=== PATIENT | female | born 1960 | race Hispanic/Latino ===

== ENCOUNTER 2022-12-10 09:08 | Observation (INO) | payer BC ==
--- NOTE | 2022-12-10 09:57 | RAD REPORT ---
EXAM DESCRIPTION: RAD - Chest Single View - 12/10/2022 9:51 am CLINICAL HISTORY: COUGH Chest pain. COMPARISON: Chest Pa And Lat (2 Views) dated 02/19/2017 FINDINGS: Portable technique limits examination quality. [id number] bilateral interstitial opacities are present. The heart is mildly enlarged in size. No displaced fractures. IMPRESSION: Mild CHF versus viral infection pattern.
[2022-12-10] MEDS ORDERED: HYDRALAZINE HCL 20 MG/ML VIAL ONE ×2 (11:23→13:33)
[2022-12-10] MEDS ORDERED: NA CHLORIDE 0.9% 1,000 ML ONE (11:23)
[2022-12-10] MEDS ORDERED: ONDANSETRON 4 MG/2 ML VIAL ONE (11:23)
[2022-12-10 11:33] LABS: Protime INR 0.97
[2022-12-10 11:34] LABS: SARS-CoV-2 Antigen Rapid Res Negative (Negative)
[2022-12-10 11:43] LABS: Absolute Lymphocytes (CBC) 0.8 K/uL (0.7-4.9); Hematocrit 44.3 % (36.0-45.0); Lymphocytes % 8.3 % (15.3-44.8); MPV 7.6 fL (7.6-11.3)
--- NOTE | 2022-12-10 11:46 | ER ---
Nurse's Notes [facility] Name: Kylee Rogers Age: 62 yrs Sex: Female : 1960 Arrival Date: 12/10/2022 Time: 09:08 Bed 5 Private MD: Diagnosis: Syncope Near;Weakness;Essential (primary) hypertension Presentation: 12/10 09:36 Chief complaint: Patient states: she started vomiting last night and is now feeling ap3 weak. Coronavirus screen: At this time, the client does not indicate any symptoms associated with coronavirus-19. Ebola Screen: No symptoms or risks identified at this time. Initial Sepsis Screen: Does the patient meet any 2 criteria? No. Patient's initial sepsis screen is negative. Does the patient have a suspected source of infection? No. Patient's initial sepsis screen is negative. Risk Assessment: Do you want to hurt yourself or someone else? Patient reports no desire to harm self or others. Onset of symptoms was December 09, 2022. 09:36 Method Of Arrival: Wheelchair ap3 09:36 Acuity: KEITH 3 ap3 Triage Assessment: 09:38 General: Appears ill, Behavior is calm, cooperative, appropriate for age. Pain: Denies ap3 pain. Neuro: Reports weakness. Respiratory: Airway is patent Respiratory effort is even, unlabored, Respiratory pattern is regular, symmetrical. GI: Reports nausea, vomiting. Historical: - Allergies: 09:37 No Known Allergies; ap3 - Home Meds: 12:29 metformin 1,000 mg oral tablet 1 tab 2 times per day [Active]; metoprolol tartrate 25 nj1 mg oral tablet 1 tab 2 times per day [Active]; lisinopril 40 mg Oral tablet 1 tab twice a day [Active]; glimepiride 4 mg Oral tablet 1 tab 2 times per day [Active]; - PMHx: 09:37 Hypertensive disorder; stroke; Diabetes mellitus; ap3 - Social history:: Smoking status: Patient denies any tobacco usage or history of. Screenin:38 Abuse screen: Denies threats or abuse. Nutritional screening: No deficits noted. ap3 Tuberculosis screening: No symptoms or risk factors identified. 11:00 [facility] ED Fall Risk Assessment (Adult) History of falling in the last 3 months, nj1 including since admission No falls in past 3 months (0 pts) Confusion or Disorientation No (0 pts) Intoxicated or Sedated No (0 pts) Impaired Gait Yes (1 pt) Mobility Assist Device Used Yes (1 pt) Altered Elimination No (0 pt) Score/Fall Risk Level 0 - 2 = Low Risk Oriented to surroundings, Maintained a safe environment, Hourly rounding (assess needs \\T\\ fall precautionary measures) done. Assessment: 11:00 Reassessment: Patient appears in no apparent distress at this time. Patient and/or nj1 family updated on plan of care and expected duration. Pain level reassessed. Patient is alert, oriented x 3, equal unlabored respirations, skin warm/dry/pink. GI: Patient currently denies nausea. 11:00 Neuro: Reports weakness in Generalized, "unable to stand". nj1 12:00 Reassessment: Patient appears in no apparent distress at this time. Patient and/or nj1 family updated on plan of care and expected duration. Pain level reassessed. Patient is alert, oriented x 3, equal unlabored respirations, skin warm/dry/pink. Vital Signs: 09:36 BP 171 / 103; Pulse 71; Resp 19; Temp 98.1; Pulse Ox 99% ; Weight 104.33 kg; Height 5 ap3 ft. 7 in. ; 11:50 BP 185 / 89; Pulse 79; Resp 22; Pulse Ox 100% on R/A; nj1 13:08 BP 204 / 104; Pulse 77; Resp 18; Pulse Ox 99% ; nj1 14:00 BP 153 / 97; Pulse 76; Resp 24; Pulse Ox 100% ; nj1 09:36 Body Mass Index 36.02 (104.33 kg, 170.18 cm) ap3 ED Course: 09:10 Patient arrived in ED. mr 09:11 Toi Ngo MD is Attending Physician. kurtis 09:36 Triage completed. ap3 09:38 Arm band placed on right wrist. ap3 09:52 XRAY Chest (1 view) In Process Unspecified. EDMS 10:31 Alexandria Alejo, KIERAN is Primary Nurse. nj1 11:00 Patient has correct armband on for positive identification. Bed in low position. Call [facility] light in reach. Side rails up X 1. Adult w/ patient. 11:00 Inserted saline lock: 20 gauge in right antecubital area, using aseptic technique. [facility] Blood collected. 11:44 EKG done, by ED staff, reviewed by Toi Ngo MD. em1 11:45 Kishor Reardon MD is Hospitalizing Provider. kurtis 12:59 CT Head Brain wo Cont In Process Unspecified. EDMS 13:03 CT Chest Wo Con In Process Unspecified. EDMS 15:03 No provider procedures requiring assistance completed. Patient admitted, IV remains in nj1 place. Administered Medications: 09:14 CANCELLED (Duplicate Order): NS 0.9% IV 1000 ml IV at 1 bolus Per protocol; 1000 mL kurtis bolus 11:21 Drug: NS 0.9% IV 1000 ml Route: IV; Rate: 1 bolus; Site: right antecubital; nj1 11:21 Drug: Ondansetron IVP 4 mg Route: IVP; Site: right antecubital; nj1 12:00 Follow up: Response: No adverse reaction nj1 11:21 Drug: hydrALAZINE IVP 10 mg Route: IVP; Site: right antecubital; nj1 12:00 Follow up: Response: No adverse reaction nj1 13:50 Drug: Rocephin IV 1 grams Route: IV; Rate: per protocol; Site: right antecubital; bp 13:50 Drug: Magnesium Sulfate IVPB 1 grams Route: IVPB; Infused Over: 1 hrs; Site: right bp antecubital; 13:50 Drug: hydrALAZINE IVP 10 mg Route: IVP; Site: right antecubital; bp 14:36 Follow up: Response: No adverse reaction nj1 13:50 Drug: hydrALAZINE PO 10 mg Route: PO; bp 14:36 Follow up: Response: No adverse reaction nj1 Medication: 15:04 VIS not applicable for this client. nj1 Outcome: 11:45 Decision to Hospitalize by Provider. kurtis 14:43 Admitted to Med/surg via stretcher, room 229, Other Taken to floor by MRI staff. Ok'd nj1 by charge nurse. Report called to Nurse Ricks. 14:43 Admitted to [facility] 14:43 Condition: stable 14:43 Instructed on the need for admit. 15:06 Patient left the ED. [facility] Signatures: Dispatcher [employer] EDLA Toi Ngo MD MD cha Rivera, Gary Christianson em1 Earnest Arambula, RN RN bp Rose Marie Vasquez RN RN ap3 Alexandria Alejo RN RN nj1 Corrections: (The following items were deleted from the chart) 12:21 11:00 Reassessment: Patient appears in no apparent distress at this time. Patient nj1 and/or family updated on plan of care and expected duration. Pain level reassessed. Patient is alert, oriented x 3, equal unlabored respirations, skin warm/dry/pink. nj1 12: 09:37 Home Meds: Metformin Oral; ap3 nj1 12: 09:37 Home Meds: Metoprolol Tartrate Oral; ap3 nj1
--- NOTE | 2022-12-10 11:46 | EDPHYS ---
Physician Documentation [facility] Name: Kylee Rogers Age: 62 yrs Sex: Female : 1960 Arrival Date: 12/10/2022 Time: 09:08 Bed 5 Private MD: ED Physician Toi Ngo HPI: 12/10 11:14 This 62 yrs old Female presents to ER via Wheelchair with complaints of kurtis Vomiting, Weakness. 11:14 The patient presents to the emergency department with nausea, vomiting. Onset: The kurtis symptoms/episode began/occurred 2 day(s) ago. Possible causes: unknown. The symptoms are aggravated by nothing. The symptoms are alleviated by nothing. Associated signs and symptoms: Pertinent positives: abdominal pain. Severity of symptoms: At their worst the symptoms were mild in the emergency department the symptoms are unchanged. The patient has experienced similar episodes in the past, a few times. Historical: - Allergies: 09:37 No Known Allergies; ap3 - Home Meds: 12:29 metformin 1,000 mg oral tablet 1 tab 2 times per day [Active]; metoprolol tartrate 25 nj1 mg oral tablet 1 tab 2 times per day [Active]; lisinopril 40 mg Oral tablet 1 tab twice a day [Active]; glimepiride 4 mg Oral tablet 1 tab 2 times per day [Active]; - PMHx: 09:37 Hypertensive disorder; stroke; Diabetes mellitus; ap3 - Social history:: Smoking status: Patient denies any tobacco usage or history of. ROS: 11:16 Constitutional: Negative for fever, chills, and weight loss, Eyes: Negative for injury, kurtis pain, redness, and discharge, ENT: Negative for injury, pain, and discharge, Neck: Negative for injury, pain, and swelling, Cardiovascular: Negative for chest pain, palpitations, and edema, Respiratory: Negative for shortness of breath, cough, wheezing, and pleuritic chest pain, Abdomen/GI: Negative for abdominal pain, nausea, vomiting, diarrhea, and constipation, Back: Negative for injury and pain, : Negative for injury, bleeding, discharge, and swelling, MS/Extremity: Negative for injury and deformity, Skin: Negative for injury, rash, and discoloration, Psych: Negative for depression, anxiety, suicide ideation, homicidal ideation, and hallucinations, Allergy/Immunology: Negative for hives, rash, and allergies, Endocrine: Negative for neck swelling, polydipsia, polyuria, polyphagia, and marked weight changes, Hematologic/Lymphatic: Negative for swollen nodes, abnormal bleeding, and unusual bruising. 11:16 Neuro: Positive for dizziness, weakness. Exam: 11:16 Constitutional: This is a well developed, well nourished patient who is awake, alert, kurtis and in no acute distress. Head/Face: Normocephalic, atraumatic. Eyes: Pupils equal round and reactive to light, extra-ocular motions intact. Lids and lashes normal. Conjunctiva and sclera are non-icteric and not injected. Cornea within normal limits. Periorbital areas with no swelling, redness, or edema. ENT: Nares patent. No nasal discharge, no septal abnormalities noted. Tympanic membranes are normal and external auditory canals are clear. Oropharynx with no redness, swelling, or masses, exudates, or evidence of obstruction, uvula midline. Mucous membranes moist. Neck: Trachea midline, no thyromegaly or masses palpated, and no cervical lymphadenopathy. Supple, full range of motion without nuchal rigidity, or vertebral point tenderness. No Meningismus. Chest/axilla: Normal chest wall appearance and motion. Nontender with no deformity. No lesions are appreciated. Cardiovascular: Regular rate and rhythm with a normal S1 and S2. No gallops, murmurs, or rubs. Normal PMI, no JVD. No pulse deficits. Respiratory: Lungs have equal breath sounds bilaterally, clear to auscultation and percussion. No rales, rhonchi or wheezes noted. No increased work of breathing, no retractions or nasal flaring. Abdomen/GI: Soft, non-tender, with normal bowel sounds. No distension or tympany. No guarding or rebound. No evidence of tenderness throughout. Back: No spinal tenderness. No costovertebral tenderness. Full range of motion. Skin: Warm, dry with normal turgor. Normal color with no rashes, no lesions, and no evidence of cellulitis. MS/ Extremity: Pulses equal, no cyanosis. Neurovascular intact. Full, normal range of motion. Neuro: Awake and alert, GCS 15, oriented to person, place, time, and situation. Cranial nerves II-XII grossly intact. Motor strength 5/5 in all extremities. Sensory grossly intact. Cerebellar exam normal. Normal gait. Psych: Awake, alert, with orientation to person, place and time. Behavior, mood, and affect are within normal limits. 11:44 ECG was reviewed by the Attending Physician. [facility] Vital Signs: 09:36 BP 171 / 103; Pulse 71; Resp 19; Temp 98.1; Pulse Ox 99% ; Weight 104.33 kg; Height 5 ap3 ft. 7 in. ; 11:50 BP 185 / 89; Pulse 79; Resp 22; Pulse Ox 100% on R/A; oh1 13:08 BP 204 / 104; Pulse 77; Resp 18; Pulse Ox 99% ; banner 14:00 BP 153 / 97; Pulse 76; Resp 24; Pulse Ox 100% ; banner 09:36 Body Mass Index 36.02 (104.33 kg, 170.18 cm) ap3 MDM: 09:12 Patient medically screened. [facility] 11:18 Differential diagnosis: Nonspecific abd pain, gastritis, viral gastroenteritis, kurtis gastroenteritis. Differential Diagnosis altered mental status, sepsis, flu. Data reviewed: vital signs, nurses notes, lab test result(s), EKG, radiologic studies, CT scan, plain films. Consideration of Admission/Observation Escalation of care including admission/observation considered. Management of patient was discussed with the following: Hospitalist: md darline. 12/10 09:13 Order name: Basic Metabolic Panel; Complete Time: 12:31 [facility] 12/10 09:13 Order name: CBC with Diff; Complete Time: 12:31 [facility] 12/10 09:13 Order name: LFT's; Complete Time: 12:31 [facility] 12/10 09:13 Order name: Magnesium; Complete Time: 12:31 [facility] 12/10 09:13 Order name: NT PRO-BNP; Complete Time: 12:31 [facility] 12/10 09:13 Order name: PT-INR; Complete Time: 11:39 [facility] 12/10 09:13 Order name: Troponin HS; Complete Time: 12:31 [facility] 12/10 09:13 Order name: Lipase; Complete Time: 12:31 [facility] 12/10 09:13 Order name: Blood Culture Adult (2) [facility] 12/10 09:13 Order name: Lactate w/ 2H reflex if indic.; Complete Time: 12:31 [facility] 12/10 09:13 Order name: Urinalysis w/ reflexes; Complete Time: 12:31 [facility] 12/10 09:13 Order name: SARS RAPID; Complete Time: 11:39 [facility] 12/10 09:13 Order name: Flu; Complete Time: 12:31 [facility] 12/10 09:46 Order name: Glucose, Ancillary Testing; Complete Time: 11:39 [facility] 12/10 14:00 Order name: Hemoglobin A1c [facility] 12/10 14:00 Order name: Lipid Profile [facility] 12/10 09:13 Order name: XRAY Chest (1 view); Complete Time: 11:39 [facility] 12/10 12:41 Order name: CT Head Brain wo Cont [facility] 12/10 12:41 Order name: CT Chest Wo Con [facility] 12/10 13:54 Order name: Brain Wo Cont [facility] 12/10 09:13 Order name: EKG; Complete Time: 09:15 [facility] 12/10 09:13 Order name: Cardiac monitoring; Complete Time: 11:10 [facility] 12/10 09:13 Order name: EKG - Nurse/Tech; Complete Time: 11:44 [facility] 12/10 09:13 Order name: IV Saline Lock; Complete Time: 11:10 [facility] 12/10 09:13 Order name: Labs collected and sent; Complete Time: 11:10 [facility] 12/10 09:13 Order name: O2 Per Protocol; Complete Time: 11:10 [facility] 12/10 09:13 Order name: O2 Sat Monitoring; Complete Time: 11:10 [facility] EC:44 Rate is 75 beats/min. Rhythm is regular. QRS Draper is Normal. DC interval is normal. QRS kurtis interval is normal. QT interval is normal. No Q waves. T waves are Normal. No ST changes noted. Clinical impression: NSR w/ Non-specific ST/T Changes and No evidence of ischemia. Interpreted by me. Reviewed by me. Administered Medications: 09:14 CANCELLED (Duplicate Order): NS 0.9% IV 1000 ml IV at 1 bolus Per protocol; 1000 mL [facility] bolus 11:21 Drug: NS 0.9% IV 1000 ml Route: IV; Rate: 1 bolus; Site: right antecubital; nj1 11:21 Drug: Ondansetron IVP 4 mg Route: IVP; Site: right antecubital; nj1 12:00 Follow up: Response: No adverse reaction nj1 11:21 Drug: hydrALAZINE IVP 10 mg Route: IVP; Site: right antecubital; nj1 12:00 Follow up: Response: No adverse reaction nj1 13:50 Drug: Rocephin IV 1 grams Route: IV; Rate: per protocol; Site: right antecubital; bp 13:50 Drug: Magnesium Sulfate IVPB 1 grams Route: IVPB; Infused Over: 1 hrs; Site: right bp antecubital; 13:50 Drug: hydrALAZINE IVP 10 mg Route: IVP; Site: right antecubital; bp 14:36 Follow up: Response: No adverse reaction nj1 13:50 Drug: hydrALAZINE PO 10 mg Route: PO; bp 14:36 Follow up: Response: No adverse reaction nj1 Disposition Summary: 12/10/22 11:45 Hospitalization Ordered Hospitalization Status: Inpatient Admission kurtis Provider: Kishor Reardon cha Location: Telemetry/MedSurg (observation) kurtis Condition: Fair kurtis Problem: new kurtis Symptoms: have improved kurtis Bed/Room Type: Standard kurtis Room Assignment: 229(12/10/22 14:02) dw Diagnosis - Syncope Near kurtis - Weakness kurtis - Essential (primary) hypertension kurtis Forms: - Medication Reconciliation Form kurtis - SBAR form kurtis Signatures: Dispatcher [employer] Kaela Chicas RN RN dw Toi Ngo MD MD cha Peltier, Brian RN RN bp Rose Marie Vasquez RN RN [facility] Alexandria Alejo RN RN nj1 Corrections: (The following items were deleted from the chart) 09:14 09:13 NS 0.9% IV 1000 ml IV at 1 bolus Per protocol; 1000 mL bolus ordered. [facility] 12:31 09:37 Home Meds: Metformin Oral; [place] [id number] 12:31 09:37 Home Meds: Metoprolol Tartrate Oral; 3 banner 14:02 11:45 kurtis dw
[2022-12-10 11:49] LABS: Albumin 3.9 g/dL (3.4-5.0); Bilirubin Direct 0.1 mg/dL (0-0.2); Bilirubin Total 0.6 mg/dL (0.2-1.0); Magnesium 1.6 mg/dL (1.6-2.4); Potassium 3.9 mEq/L (3.5-5.1); Protein, Total 8.4 g/dL (6.4-8.2); Troponin High Sensitivity 9.5 pg/mL (<58.9)
[2022-12-10 12:26] LABS: Specific Gravity 1.017 (1.005-1.030); Urine Bacteria None Seen /HPF (<20); Urine Bilirubin NEGATIVE (Negative); Urine Blood Negative (Negative); Urine Clarity Clear (Clear); Urine Color Light-Yellow (Yellow); Urine Glucose 4+ (Over) (Negative); Urine Mucus Slight /HPF (None Seen); Urine Protein 1+ (Negative); Urine Urobilinogen Normal (Normal); Urine pH 6.5 (5.0-7.0)
[2022-12-10] MEDS ORDERED: HYDRALAZINE HCL 10 MG TABLET ONE (13:33)
[2022-12-10] MEDS ORDERED: CEFTRIAXONE 1000 MG/VIAL ONE (13:33)
[2022-12-10] MEDS ORDERED: MAGNESIUM SULFATE 1 gm IVPB 1 GM/100 ML BAG IV ONE (13:34)
[2022-12-10] MEDS ORDERED: NA CHLORIDE 0.9% 100 ML ONE (13:34)
--- NOTE | 2022-12-10 13:45 | RAD REPORT ---
EXAM DESCRIPTION: CT - Head Brain Wo Cont - 12/10/2022 1:01 pm CLINICAL HISTORY: DIZZINESS COMPARISON: Brain Wo Cont dated 02/21/2017 TECHNIQUE: Noncontrast head CT images ad were obtained without IV contrast. Multiplanar reformats we re generated and reviewed. All CT scans are performed using dose optimization technique as appropriate and may include automated exposure control or mA/KV adjustment according to patient size. FINDINGS: No intracranial hemorrhage, mass, or edema. Midline structures are unremarkable. Normal ventricular caliber for age. Encephalomalacia in the left parasagittal parieto-occipital region, stable. Farris-white matter differe ntiation elsewhere is preserved, without evidence of acute infarct. No abnormal extra-axial fluid col lections. Mastoid air cells and visualized portions of the paranasal sinuses are clear. No acute bony findings. IMPRESSION: No evidence of an acute intracranial process. Stable left parieto-occipital encephalomal acia.
[2022-12-10] MEDS ORDERED: TRAMADOL HCL 50 MG TAB PO PRN (13:55)
[2022-12-10] MEDS ORDERED: ONDANSETRON 4 MG/2 ML VIAL IV PRN (14:00)
--- NOTE | 2022-12-10 14:00 | RAD REPORT ---
EXAM DESCRIPTION: CT - Thorax Wo Con - 12/10/2022 1:01 pm CLINICAL HISTORY: DYSPNEA COMPARISON: Head Brain Wo Cont dated 12/10/2022 TECHNIQUE: Axial thin cut images of the chest were obtained without IV contrast. Multiplanar reforma ts were generated and reviewed. All CT scans are performed using dose optimization technique as appropriate and may include automated exposure control or mA/KV adjustment according to patient size. FINDINGS: No focal mass or infiltrate in the lung parenchyma. Centrally predominant interlobular sep trav thickening, with pattern of perilymphatic micro nodules both in the bilateral central regions, an d right more than left peripheral upper lobes and right peripheral lower lobe. No pleural thickening or pleural effusion. No pneumothorax. Mildly prominent mediastinal and hilar lymphadenopathy seen. No significant aortic or pulmonary arter y findings. Assessment is limited in the absence of IV contrast. No chest wall mass or abnormal axillary lymphadenopathy. Evaluation of the solid abdominal structures reveals no suspicious findings. 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 IMPRESSION: No focal consolidation. Pattern of interlobular septal thickening and perilymphatic micro nodularity as above. Differential c onsiderations include pulmonary sarcoidosis, exposure pneumoconiosis, or lymphangitis carcinomatosis. Please correlate clinically.
[2022-12-10] MEDS ORDERED: LORazepam 2 MG/ML VIAL IV ONE (14:04)
--- NOTE | 2022-12-10 14:16 | P.HP ---
Certification for Inpatient Patient admitted to: Inpatient With expected LOS: >2 Midnights Patient will require the following post-hospital care: None Practitioner: I am a practitioner with admitting privileges, knowledge of patient current condition, hospital course, and medical plan of care. Services: Services provided to patient in accordance with Admission requirements found in Title 42 Section 412.3 of the Code of Federal Regulations Patient History Date of Service: 12/10/22 Reason for admission: Dizziness and generalized weakness History of Present Illness: Patient is a 62-year-old female with a past medical history significant for DM 2, hypertension, CVA who presents with complaint of dizziness and generalized weakness. Patient reported that yesterday she had an episodes of dizziness before she went to bed. Patient reported that when she woke up she started experiencing generalized weakness, nausea, vomiting and fatigue. Patient also developed poor gait and had to be supported by family before patient could ambulate. Patient reported associated signs and symptoms of headache, diaphoresis and generalized malaise. Patient denies any other signs and symptoms. Symptoms are aggravated or relieved by nothing. Patient decided to present to the hospital for medical evaluation. Allergies No Known Allergies Allergy (Unverified 12/10/22 15:40) Home Medications: Glimepiride 4 mg PO BID 12/10/22 Lisinopril [Zestril] 40 mg PO BID 12/10/22 Metformin HCl 1,000 mg PO BID 12/10/22 Metoprolol Tartrate 25 mg PO BID 12/10/22 - Past Medical/Surgical History -: CVA -: Obesity -: DM 2 -: HTN Past Surgical History: Reviewed- Non-Contributory - Family History Father -: Diabetes, Cancer Mother -: Other (see notes) (Glaucoma, CVA) - Social History Smoking Status: Never smoker Alcohol use: No CD- Drugs: No Caffeine use: No Place of Residence: Home Review of Systems General: Sweats, Weakness, Malaise, Other (Fatigue) Eyes: Unremarkable ENT: Unremarkable Cardiovascular: Unremarkable Gastrointestinal: Nausea, Vomiting Genitourinary: Unremarkable Musculoskeletal: Unremarkable Integumentary: Unremarkable Neurological: Other (Dizziness, poor gait, headache) Physical Examination - Physical Exam General: Alert, In no apparent distress, Oriented x3, Cooperative HEENT: Atraumatic, PERRLA, Mucous membr. moist/pink, EOMI, Sclerae nonicteric Neck: Supple, 2+ carotid pulse no bruit, No LAD, Without JVD or thyroid abnormality Respiratory: Clear to auscultation bilaterally, Normal air movement Cardiovascular: No edema, Regular rate/rhythm, Normal S1 S2 Capillary refill: <2 Seconds Gastrointestinal: Normal bowel sounds, Soft and benign, No tenderness Musculoskeletal: No clubbing, No swelling, No tenderness Integumentary: No rashes Neurological: Normal speech, Normal tone, Normal affect, Abnormal gait Lymphatics: No axilla or inguinal lymphadenopathy - Studies Laboratory Data (last 24 hrs) 12/10/22 11:00: PT 10.7, INR 0.97 12/10/22 11:00: WBC 9.70, Hgb 14.4, Hct 44.3, Plt Count 254 12/10/22 11:00: Sodium 132 L, Potassium 3.9, BUN 17, Creatinine 0.58, Glucose 290 H, Magnesium 1.6, Total Bilirubin 0.6, AST 14 L, ALT 32, Alkaline Phosphatase 117, Lipase 27 Microbiology Data (last 24 hrs): 12/10/22 10:52 Nasopharnyx Influenza Type A Antigen Screen - Final 12/10/22 10:52 Nasopharnyx Influenza Type B Antigen Screen - Final Assessment and Plan - Plan --CVA. MRI brain indicates Left inferior norm cerebellum foci of diffusion restriction suggestive of acute to subacute infarct. Sequelae of remote ischemia involving the left occipital lobe and left basal temporal region. Patient outside TNK window. Neurology was consulted. Attending MD spoke with neurology who recommended aspirin, folic acid, Plavix and statin. PT/OT eval and treat. Fall precautions. Echocardiogram pending to assess for Cardioembolic source of stroke. Carotid Doppler to rule out any carotid artery stenosis. Continue supportive care. Further management per neurologist. --Generalized weakness. Secondary to CVA. PT eval and treat. Continue supportive care. --Hypertension. We will allow for permissive hypertension. Hydralazine as needed for SBP greater than 220 mg Hg. continue supportive care. --History of CVA. Continue aspirin, Plavix and statin. --DM2. BS monitoring with sliding scale insulin. -- Elevated BNP. Chest x-ray indicates Mild CHF versus viral infection pattern. Echocardiogram pending to assess cardiac structures and functions. Patient placed on diuresis with Lasix. Daily weight and strict I/O. -- Class II obesity. Likely secondary to excess calories intake. Patient counseled on weight reduction, diet and excise therapy. --DVT prophylaxis with Lovenox subQ. Discharge Plan: Home Plan to discharge in: Greater than 2 days - Advance Directives Does patient have a Living Will: No Does patient have a Durable POA for Healthcare: No - Code Status/Comfort Care Code Status Assessed: Yes Physician Review: Patient Assessed, Agree with Above Assessment and Plan Critical Care: No
[2022-12-10 15:40] VITALS: BMI 36.1
[2022-12-10] MEDS: ENOXAPARIN 40 MG/0.4 ML SQ SCH (15:58)
--- NOTE | 2022-12-10 16:21 | RAD REPORT ---
EXAM DESCRIPTION: MRI - Brain Wo Cont - 12/10/2022 3:20 pm CLINICAL HISTORY: Dizziness,Generalized weakness, Poor gait, R O CVA COMPARISON: MRI brain 02/21/2017. 12/10/[address] TECHNIQUE: Multiplanar multisequence MRI of the brain performed without IV contrast. FINDINGS: Foci of diffusion restriction are seen in the left inferior norm cerebellum, with some of the lesions involving the left cerebellar tonsil. There is corresponding T2/FLAIR signal hyperintensi ty. Left occipital encephalomalacia and adjacent gliosis are stable. Foci of gliosis and encephalomalacia along the basal left temporal lobe (showing some corresponding serpiginous marginal susceptibility s ignal abnormality suggestive of hemosiderin staining), and left peritrigonal white matter are now see n. Findings are most suggestive of remote ischemia. No evidence of acute intracranial hemorrhage or abnormal extra-axial fluid collections. Mild diffuse parenchymal volume loss. Ventricular caliber otherwise within normal for age. Midline st ructures are unremarkable. Scattered subcortical and deep white matter T2/FLAIR hyperintensities, nonspecific, but suggestive of chronic small vessel ischemic changes. No mass effect or midline shift. Major vascular flow voids are preserved. Mastoid air cells and paranasal sinuses are clear. IMPRESSION: Left inferior norm cerebellum foci of diffusion restriction suggestive of acute to subac fito infarct. Sequelae of remote ischemia involving the left occipital lobe and left basal temporal region.
[2022-12-10] MEDS ORDERED: FUROSEMIDE 20 MG/ 2ML VIAL IV SCH (17:00)
[2022-12-10] MEDS ORDERED: HYDRALAZINE HCL 20 MG/ML VIAL IV PRN (17:22)
[2022-12-10] MEDS: FOLIC ACID 1 MG TABLET PO SCH (17:26)
[2022-12-10] MEDS: CLOPIDOGREL 75 MG TABLET PO SCH (17:26)
[2022-12-10] MEDS: INSULIN -REGULAR HUMAN 50 UNIT/0.5 ML ML SQ SCH ×2 (17:27→22:27)
[2022-12-10 20:50] LABS: Magnesium 1.6 mg/dL (1.6-2.4); Thyroid Stimulating Hormone 0.704 uIU/mL (0.358-3.740)
[2022-12-10] MEDS: ATORVASTATIN 40 MG TAB PO SCH (21:03)
[2022-12-11 04:28] LABS: Absolute Lymphocytes (CBC) 1.2 K/uL (0.7-4.9); Hematocrit 38.8 % (36.0-45.0); Lymphocytes % 15.7 % (15.3-44.8); MCV 86.2 fL (80-100); MPV 7.4 fL (7.6-11.3); RBC Red Blood Cell Count 4.51 M/uL (3.86-4.86)
[2022-12-11] MEDS: ACETAMINOPHEN 325 MG TABLET PO PRN (04:42)
[2022-12-11 05:06] LABS: Potassium 3.4 mEq/L (3.5-5.1)
--- NOTE | 2022-12-11 07:53 | EKG ---
Test Date: 2022-12-10 Test Time: 11:41:17 [employer] Consultant: DOM MEASUREMENT RESULTS: Intervals: Rate: 75 OR: 166 QRSD: 98 QT: 444 QTc: 495 [place]: P: 78 OR: 166 QRS: 57 T: 108 INTERPRETIVE STATEMENTS: Sinus rhythm with premature ventricular complexes or fusion complexes Septal infarct, age undetermined Abnormal ECG Compared to ECG 02/19/2017 10:26:00 Fusion complex(es) now present Ventricular premature complex(es) now present Myocardial infarct finding now present Electronically Signed On 12-11-22 07:52:24 CDT by Franco Posada
[2022-12-11] MEDS: ENOXAPARIN 40 MG/0.4 ML SQ SCH (08:14)
[2022-12-11] MEDS: ASPIRIN 81 MG CHEWABLE TABLET PO SCH (08:14)
[2022-12-11] MEDS: CLOPIDOGREL 75 MG TABLET PO SCH (08:15)
[2022-12-11] MEDS: INSULIN -REGULAR HUMAN 50 UNIT/0.5 ML ML SQ SCH ×4 (08:15→20:34)
[2022-12-11] MEDS: FOLIC ACID 1 MG TABLET PO SCH (08:15)
--- NOTE | 2022-12-11 08:24 | RAD REPORT ---
EXAM DESCRIPTION: US - CP - 12/11/2022 1:09 am CLINICAL HISTORY: Dizziness Headache, drowsiness, dizziness COMPARISON: Carotid Artery Bilateral dated 02/21/2017 TECHNIQUE: Real-time sonographic evaluation of both carotid systems was performed. Doppler interroga tion was performed with waveform tracing bilaterally. FINDINGS: Normal high resistance waveforms are noted in both external carotid arteries. The common c arotid arteries and internal carotid arteries show normal low resistance waveforms. No significant plaque formation is seen. Peak systolic and end diastolic velocity values and the ICA/ CCA ratios are in the non-hemodynamically significant range. Antegrade flow seen in both vertebral arteries. IMPRESSION: No significant atherosclerotic changes noted. No evidence of a hemodynamically significant stenosis.
[2022-12-11] MEDS ORDERED: POTASSIUM CL SA 10 MEQ TAB PO ONE (09:00)
[2022-12-11 18:56] LABS: Potassium 4.2 mEq/L (3.5-5.1)
--- NOTE | 2022-12-11 18:59 | P.PN ---
Subjective Date of Service: 12/11/22 Chief Complaint: Dizziness and generalized weakness No acute events overnight. She continues to experience dizziness with ambulation. She states this is mildly improved compared to yesterday. She denies any chest pain, palpitations, or shortness of breath Review of Systems 10-point ROS is otherwise unremarkable Neurological: Other (dizziness) Physical Examination - Vital Signs Temperature: 98.2 F Blood Pressure: 146/70 Pulse: 67 Respirations: 14 Pulse Ox (%): 98 - Physical Exam General: Alert, In no apparent distress, Oriented x3 HEENT: Atraumatic, Mucous membr. moist/pink, EOMI, Sclerae nonicteric Neck: JVD not distended Respiratory: Clear to auscultation bilaterally, Normal air movement Cardiovascular: No edema, Regular rate/rhythm, Normal S1 S2, No gallops, No rubs, No murmurs Gastrointestinal: Normal bowel sounds, Soft and benign, Non-distended, No tenderness, No rebound, No guarding Musculoskeletal: No clubbing Integumentary: No rashes Neurological: Normal speech, Normal strength at 5/5 x4 extr, Normal tone, Sensation intact, Cranial nerves 3-12 intact, Normal reflexes 2+, Normal affect Assessment And Plan - Plan NIH Stroke Scale 1a. Level of consciousness: 0 - Alert; keenly responsive 1b. LOC questions: 0 - Both questions right 1c. LOC commands: 0 - Performs both tasks 2. Best Gaze: 0 - Normal 3. Visual: 0 - No visual loss 4. Facial Palsy: 0 - Normal symmetry 5a. Motor left arm: 0 - No drift for 10 seconds 5b. Motor right arm: 0 - No drift for 10 seconds 6a. Motor left le - No drift for 5 seconds 6b. Motor right le - No drift for 5 seconds 7. Limb ataxia: 0 - No ataxia 8. Sensory: 0 - Normal; no sensory loss 9. Best Language: 0 - Normal; no aphasia 10. Dysarthria: 0 - Normal 11. Extinction and Inattention: 0 - No abnormality 12. Distal motor function: 0 - No abnormality Total Score: 0 # Acute/Subacute Left Cerebellar Cerebrovascular Accident # History of Cerebrovascular Accident # Hypertensive Urgency # Dyslipidemia - Consulted Neurology and spoke with Dr. Dorman - recommendations appreciated - NIHSS = 0 - Allow permissive hypertension up to SBP 180 mmHg for today - q4hr neurochecks - Radiology: - Carotid artery ultrasound = "no significant atherosclerotic changes noted. No evidence of a hemodynamically significant stenosis" - CT head = "no evidence of an acute intracranial process. Stable left parieto-occipital encephalomalacia." - MRI brain = "left inferior norm cerebellum foci of diffusion restriction suggestive of acute to subacute infarct. Sequelae of remote ischemia involving the left occipital lobe and left basal temporal region." - MRA head/neck requested - Ordered transthoracic echocardiogram - PT/OT evaluation requested - Ordered risk profile: - Hgb A1c = 10.0 % - Lipid Panel = TC 193, LDL 120, HDL 47, TG 129 - TSH = 0.704 - Started aspirin, atorvastatin, folic acid, clopidogrel per Neuro recs # Hyperglycemia in Type II Diabetes Mellitus - Hgb A1c = 10.0 % - Correction scale insulin ordered # Interlobular Septal Thickening with Mildly Prominent Mediastinal/Hilar Lymphadenopathy seen on CT Scan - CT chest = "no focal consolidation. Pattern of interlobular septal thickening and perilymphatic micro nodularity as above. Differential considerations include pulmonary sarcoidosis, exposure pneumoconiosis, or lymphangitis carcinomatosis. Please correlate clinically." - Pulmonology consulted - recommendations appreciated Kishor Reardon M.D.
[2022-12-11] MEDS: ATORVASTATIN 40 MG TAB PO SCH (20:27)
--- NOTE | 2022-12-12 00:43 | CON ---
Reason For Consultation: Consultation called because of intermittent dizziness and generalized weakn ess. History Of Present Illness: Ms. Rogers is a 62-year-old patient who has diabetes, hypertension and prior stroke, that she recovered from well except for some difficulty with her gait, coordination, a nd loss of balance. She said the episode occurred after going to bed and when she woke up, she felt as though she was sick to stomach, falling forward, and she was assisted by her daughter. Her daught er said she felt that she was putting her full weight on her and she had to try to hold her up to cindy p her from falling. She did have headache, diaphoresis and felt generalized malaise when the event o ccurred. She came to the hospital for evaluation where her blood work showed essentially unremarkabl e complete blood count with differential. Coagulation panel was normal. Chemistries showed hyponatr emia and hypokalemia at 133 and 3.4,. Blood glucose was slightly elevated to 208. Creatinine was nor mal at 0.6. Beta natriuretic peptide elevated to 1129. Cholesterol panel was normal. Liver functio n studies unremarkable. Thyroid function studies unremarkable. Urinalysis, however, did show 75 est erase, 5 to 10 red blood cells, and 1+ ketones. COVID testing was negative. Her brain MRI done yest erday revealed left inferior norm cerebellar focal diffusion suggestive of subacute to acute infarct. There was also the sequelae of remote infarct in the left occipital lobe and left basal temporal re gion. Her carotid artery ultrasound showed no significant arthrosclerotic disease or no hemodynamica lly significant stenosis. Chest CT scan showed no focal consolidation. There is a pattern of interl obar septal thickening and perilymphatic micronodularity as noted. That differential diagnosis does include pulmonary sarcoidosis, exposure to pneumoconiosis, or lymphangitis carcinomatosis. Past Medical History: Stroke, obesity, diabetes mellitus type 2, and hypertension. Medications: Glimepiride 4 mg twice daily, lisinopril 40 mg twice daily, metformin 1000 mg twice leena ly, and metoprolol 25 mg daily. Allergies: NO KNOWN DRUG ALLERGIES. Family History: Diabetes and cancer in father. Mother with glaucoma. Social History: No alcohol, tobacco, or IV drug use. The patient lives at home with family. Review of Systems: As noted, diffuse weakness, myalgias, arthralgias, unsteady gait, inability to maintain balance and f alling along with nausea and vomiting. Otherwise, no genitourinary or gastrointestinal issues. No s ignificant cardiovascular issues. Physical Examination: Vital Signs: Blood pressure 146/70, pulse 67, respiratory rate 14, temperature 98.2, and oxygen satu ration 98% on room air. Weight 230 pounds. Height 5 feet 7 inches. HEENT: She is normocephalic, atraumatic. Sclerae anicteric. Oropharynx pink and moist. Neck: Supple. Chest: Clear. Heart: Regular. Extremities: No significant clubbing, cyanosis, or edema. Neurologic: She is alert and oriented to person, place, time, and situation. In terms of cranial ne rves, no focal neurological deficits noted, perhaps except some difficulty with saccades to the left. In terms of motor exam, no weakness in upper and lower extremities; however, she has incoordination noted in the left upper and lower extremities with dysmetria, past pointing, and difficulty with ema l-to-ellison on the left. In terms of her gait, tendency to fall to the left as she tries to stand and ambulate. Reflexes are symmetric. Mild stocking-glove loss to light touch and temperature. Assessment: Ms. Rogers is a 62-year-old patient with hypertension, diabetes, prior stroke, and an acute to subacute left inferior norm cerebellar stroke in addition to an old left occipital stroke. There is also left basal temporal lobe involvement with hemosiderin suggestive of possible bleed or h emorrhagic conversion. The patient does have some deficits related to the stroke. She did work with the physical therapist and was able to ambulate 250 feet with a rolling walker with contact guard as sist. The patient wanted to go home and not stay in the hospital to do any aggressive therapy, but w ould rather do it at home and she has her daughter who can support her. Plan: She should continue aspirin 81 mg daily, Plavix 75 mg daily, and folate 1 mg daily. Continue Lipitor 40 mg at bedtime. She should have aggressive management of her blood sugars and have permiss apolinar hypertension at this point. Note, her blood sugars in hospital are elevated to 230. Hemoglobin A1c was 10, indicating uncontrolled diabetes mellitus. Her LDL cholesterol was 120, which is elevate d and required a statin and she is on statin. HDL cholesterol 47. After discharge, she should follo w up in Dr. Dorman's office within the month. ROSCOE/ALEXX Voice ID: [id number] Report ID: [id number]
[2022-12-12 04:59] LABS: Magnesium 1.8 mg/dL (1.6-2.4)
[2022-12-12] MEDS: ACETAMINOPHEN 325 MG TABLET PO PRN (06:20)
[2022-12-12] MEDS ORDERED: MAGNESIUM SULFATE 1 gm IVPB 1 GM/100 ML BAG IV ONE (07:00)
[2022-12-12] MEDS ORDERED: HYDRALAZINE HCL 20 MG/ML VIAL IV PRN (08:09)
[2022-12-12] MEDS: ASPIRIN 81 MG CHEWABLE TABLET PO SCH (08:29)
[2022-12-12] MEDS: ENOXAPARIN 40 MG/0.4 ML SQ SCH (08:29)
[2022-12-12] MEDS: FOLIC ACID 1 MG TABLET PO SCH (08:29)
[2022-12-12] MEDS: INSULIN -REGULAR HUMAN 50 UNIT/0.5 ML ML SQ SCH (08:30)
[2022-12-12] MEDS: CLOPIDOGREL 75 MG TABLET PO SCH (08:30)
--- NOTE | 2022-12-12 08:53 | P.DS ---
Admission Date: 12/10/22 Discharge Date: 12/12/22 Disposition: DC HOME/HOME HEALTH CARE Discharge Condition: GOOD Reason for Admission: Dizziness and generalized weakness Consultations: 1. Neurology 2. Pulmonology Hospital Course: DIAGNOSES: # Acute/Subacute Left Cerebellar Cerebrovascular Accident # History of Cerebrovascular Accident # Hypertensive Urgency # Dyslipidemia # Hyperglycemia in Type II Diabetes Mellitus # Interlobular Septal Thickening with Mildly Prominent Mediastinal/Hilar Lymphadenopathy seen on CT Scan HOSPITAL COURSE: Ms. Kylee Rogers is a pleasant 62 year old female with a past medical history significant for prior cerebrovascular accident, type II diabetes mellitus, hypertension, and dyslipidemia who was admitted to the [facility] on 12/10/2022 for weakness/dizziness. She was admitted to the Medicine service. Upon further evaluation, her CT head revealed, "no evidence of an acute intracranial process. Stable left parieto- occipital encephalomalacia." Her MRI brain revealed, "left inferior norm cerebellum foci of diffusion restriction suggestive of acute to subacute infarct. Sequelae of remote ischemia involving the left occipital lobe and left basal temporal region." Her carotid artery ultrasound revealed, "no significant atherosclerotic changes noted. No evidence of a hemodynamically significant stenosis" Her transthoracic echocardiogram revealed, "normal 2D echocardiogram with doppler." An MRA head/neck was requested, but was not completed as she felt well and wanted to be discharged this morning. Neurology was consulted and she was evaluated by Dr. Dorman. He recommended discharge on aspirin, folic acid, atorvastatin, and clopidogrel. PT/OT was consulted and she worked well with these services. It was thought that she would benefit from continued PT/OT services. We discussed placement options including inpatient rehab, alf facility, and home health. She stated that she would prefer to be discharged with home health services. Incidentally, her CT chest was notable for interlobular septal thickening with mildly prominent mediastinal and hilar lymphadenopathy. She was counseled on these findings and the potential for an underlying malignancy. Pulmonology was consulted and she was evaluated by Dr. Acuna. Both he and I have advised that she follow-up with him in clinic for further evaluation. She verbalized understanding and agreed to make this appointment. Additionally, her urinalysis was notable for microscopic hematuria. She was counseled that this has a potential to represent an underlying urologic malignancy. She is advised to follow-up with her PCP for further evaluation. She verbalized understanding and agreed to make this appointment. On 12/12/2022, she was seen on morning rounds and deemed medically stable for discharge. She was discharged with instructions to schedule follow-up appointments with her PCP (Dr. Giles), with Pulmonology (Dr. Acuna), and with Neurology (Dr. Dorman). She was provided prescriptions for atorvastatin and clopidogrel. She was given the opportunity to ask questions and reported no further questions. Furthermore, all questions were answered to the best of my ability. A copy of this discharge summary will be sent to the above providers to facilitate continuity of care. Today, I personally spent 35 minutes on her case, of which greater than 50% of the time was spent in patient education, counseling, and coordination of care as described above. - Physical Exam General: Alert, In no apparent distress, Oriented x3 HEENT: Atraumatic, Mucous membr. moist/pink, EOMI, Sclerae nonicteric Neck: JVD not distended Respiratory: Clear to auscultation bilaterally, Normal air movement Cardiovascular: No edema, Regular rate/rhythm, No murmurs Gastrointestinal: Normal bowel sounds, Soft, Non-distended, No tenderness Musculoskeletal: No clubbing Integumentary: No rashes Neurological: Normal speech, Normal strength at 5/5 x4 extr, Normal tone, Sensation intact, Cranial nerves 3-12 intact, Normal reflexes 2+, Normal affect Assessment And Plan - Plan NIH Stroke Scale 1a. Level of consciousness: 0 - Alert; keenly responsive 1b. LOC questions: 0 - Both questions right 1c. LOC commands: 0 - Performs both tasks 2. Best Gaze: 0 - Normal 3. Visual: 0 - No visual loss 4. Facial Palsy: 0 - Normal symmetry 5a. Motor left arm: 0 - No drift for 10 seconds 5b. Motor right arm: 0 - No drift for 10 seconds 6a. Motor left le - No drift for 5 seconds 6b. Motor right le - No drift for 5 seconds 7. Limb ataxia: 0 - No ataxia 8. Sensory: 0 - Normal; no sensory loss 9. Best Language: 0 - Normal; no aphasia 10. Dysarthria: 0 - Normal 11. Extinction and Inattention: 0 - No abnormality 12. Distal motor function: 0 - No abnormality Total Score: 0 Vital Signs/Physical Exam: Temp Pulse Resp BP Pulse Ox 98.2 F 88 18 178/81 H 97 12/12/22 04:00 12/12/22 04:00 12/12/22 04:00 12/12/22 04:00 12/12/22 04:00 Laboratory Data at Discharge: WBC 7.90 thou/uL (4.3-10.9) 12/11/22 03:56 Hgb 13.0 g/dL (12.0-15.0) D 12/11/22 03:56 Hct 38.8 % (36.0-45.0) 12/11/22 03:56 Plt Count 248 thou/uL (152-406) 12/11/22 03:56 PT 10.7 SECONDS (9.5-12.5) 12/10/22 11:00 INR 0.97 12/10/22 11:00 Sodium 134 mEq/L (136-145) L 12/12/22 03:30 Potassium 4.0 mEq/L (3.5-5.1) 12/12/22 03:30 BUN 27 mg/dL (7-18) H 12/12/22 03:30 Creatinine 0.61 mg/dL (0.55-1.02) 12/12/22 03:30 Glucose 182 mg/dL (74-106) H 12/12/22 03:30 Phosphorus 4.0 mg/dL (2.5-4.9) 12/10/22 19:46 Magnesium 1.8 mg/dL (1.6-2.4) 12/12/22 03:30 Total Bilirubin 0.6 mg/dL (0.2-1.0) 12/10/22 11:00 AST 14 U/L (15-37) L 12/10/22 11:00 ALT 32 U/L (13-56) 12/10/22 11:00 Alkaline Phosphatase 117 U/L (45-117) 12/10/22 11:00 Triglycerides 129 mg/dL (<150) 12/10/22 20:03 Cholesterol 193 mg/dL (<200) 12/10/22 20:03 HDL Cholesterol 47 mg/dL (40-60) 12/10/22 20:03 Cholesterol/HDL Ratio 4.11 12/10/22 20:03 Lipase 27 U/L (13-75) 12/10/22 11:00 Home Medications: Glimepiride 4 mg PO BID 12/10/22 Lisinopril [Zestril] 40 mg PO BID 12/10/22 Metformin HCl 1,000 mg PO BID 12/10/22 Metoprolol Tartrate 25 mg PO BID 12/10/22 Aspirin Chewable [Aspirin Chewable*] 81 mg PO DAILY tab.chew 12/12/22 Atorvastatin Calcium [Lipitor] 40 mg PO BEDTIME #30 tab 12/12/22 Clopidogrel Bisulfate [Plavix*] 75 mg PO DAILY #30 tab 12/12/22 Folic Acid 1 mg PO DAILY #30 12/12/22 New Medications: Folic Acid 1 mg PO DAILY #30 Atorvastatin Calcium [Lipitor] 40 mg PO BEDTIME #30 tab Clopidogrel Bisulfate [Plavix*] 75 mg PO DAILY #30 tab Physician Discharge Instructions: 1. Please call and schedule a follow-up appointment with your PCP (Dr. Giles) in 3-5 days There was a small amount of blood in your urine. Although this may be due to the Judd catheter, we need to make sure that it is not a sign of bladder/kidney cancer. Please make sure to follow-up your urine study with your PCP. 2. Please call and schedule a follow-up appointment with Neurology (Dr. Dorman) in 5-7 days Please have him refill/adjust your atorvastatin and clopidogrel. 3. Please call and schedule a follow-up appointment with Pulmonology (Dr. Acuna) in 5-7 days As we discussed, there were some enlarged lymph nodes as well as some spots noted on your lungs. At this time, we cannot exclude cancer as a possible diagnosis. Please make sure to follow-up with Dr. Acuna for further evaluation. Followup: Marcos Acuna MD [ACTIVE - CAN ADMIT] - Ellis Dorman MD [ASSOCIATE-ACTIVE - CAN ADMIT] - Chan LAZCANO,Sonal Bautista DO [Primary Care Provider] -
[2022-12-12 09:00] VITALS: O2SAT 98
[2022-12-12 09:02] VITALS: TEMP 97.8
[2022-12-12 09:21] LABS: Specific Gravity 1.018 (1.005-1.030); Urine Bacteria <20 /HPF (<20); Urine Bilirubin NEGATIVE (Negative); Urine Blood Negative (Negative); Urine Clarity Clear (Clear); Urine Color Light-Yellow (Yellow); Urine Glucose 1+ (Negative); Urine Mucus Slight /HPF (None Seen); Urine Protein NEGATIVE (Negative); Urine Urobilinogen Normal (Normal); Urine pH 5.5 (5.0-7.0)
[2022-12-12 09:52] VITALS: BP 132/71
--- NOTE | 2022-12-12 10:33 | ECHO ---
HEIGHT: 5 ft 7 in WEIGHT: 230 lb 8 oz DATE OF STUDY: 12/11/[address]: Odell Moore 2-DIMENSIONAL: YES M.MODE: YES DOPPLER: YES COLOR FLOW: YES TDS: NO PORTABLE: YES DEFINITY: NO BUBBLE STUDY: NO DIAGNOSIS: DIZZINESS CARDIAC HISTORY: CATHERIZATION: NO SURGERY: NO PROSTHETIC VALVE: NO PACEMAKER: NO MEASUREMENTS (cm) DIASTOLIC (NORMALS) SYSTOLIC (NORMALS) IVSd 1.2 (0.6-1.2) LA Diam 3.5 (1.9-4.0) LVEF 63% LVIDd 5.3 (3.5-5.7) LVIDs 3.5 (2.0-3.5) %FS 34% LVPWd 1.3 (0.6-1.2) Ao Diam 3.1 (2.0-3.7) 2 DIMENSIONAL ASSESSMENT: RIGHT ATRIUM: NORMAL LEFT ATRIUM: NORMAL RIGHT VENTRICLE: NORMAL LEFT VENTRICLE: NORMAL TRICUSPID VALVE: NORMAL MITRAL VALVE: NORMAL PULMONIC VALVE: NORMAL AORTIC VALVE: NORMAL PERICARDIAL EFFUSION: NONE AORTIC ROOT: NORMAL LEFT VENTRICULAR WALL MOTION: NORMAL DOPPLER/COLOR FLOW: NORMAL COMMENTS: NORMAL 2D ECHOCARDIOGRAM WITH DOPPLER. TECHNOLOGIST: Maximiliano LOPEZ
== END 2022-12-12 10:22 | disposition home health service (06) ==
LOC: ER 09:08 → ERHOLD 13:53 → 2ND 14:45
PROVIDERS: ADMIT Internal Medicine; ATTEND Internal Medicine
DX: I63.9 Cerebral infarction, unspecified (principal); R29.700 NIHSS score 0; R42 Dizziness and giddiness; R53.1 Weakness; I10 Essential (primary) hypertension; Z86.73 Personal history of transient ischemic attack (TIA), and cerebral infarction without residual deficits; E66.9 Obesity, unspecified; Z68.36 Body mass index [BMI] 36.0-36.9, adult; Z71.3 Dietary counseling and surveillance; E78.5 Hyperlipidemia, unspecified; I16.0 Hypertensive urgency; E11.65 Type 2 diabetes mellitus with hyperglycemia
CPT/HCPCS: 36415; 70450; 70551; 71045; 71250; 80048; 80061; 80076; 81001; 82947; 83036; 83605; 83690; 83735; 83880; 84100; 84439; 84443; 84484; 85025; 85610; 87040; 87804; 87811; 93005; 93306; 93880; 96374; 96375; 97112; 97116; 97161; 97533; 99285; G0378; J0360; J0696; J1650; J1815; J1940; J2405; J3475; J7030

== ENCOUNTER → 2024-01-17 | Day surgery (SDC) | payer BC ==
[2024-01-16 10:23] LABS: Absolute Eosinophils 0.1 K/uL (0-0.5); Absolute Lymphocytes (CBC) 1.3 K/uL (0.7-4.9); Absolute Monocytes 0.6 K/uL (0.1-1.3); Absolute Neutrophil 5.8 K/uL (1.8-8.0); Basophils % 0.5 % (0-1.3); Eosinophils % 1.7 % (0-4.4); Hematocrit 40.3 % (36.0-45.0); Hemoglobin 13.2 g/dL (12.0-15.0); Lymphocytes % 16.3 % (15.3-44.8); MCH 28.7 pg (27.0-35.0); MCHC 32.8 g/dL (32.0-36.0); MCV 87.6 fL (80-100); MPV 8.1 fL (7.6-11.3); Monocytes % 7.5 % (3.3-12.3); Platelets 234 thou/uL (152-406); RBC Red Blood Cell Count 4.61 M/uL (3.86-4.86); Red Cell Distribution Width 12.9 % (12.1-15.2)
[2024-01-16 10:30] LABS: PT Prothrombin Time 10.7 SECONDS (9.5-12.5); Protime INR 0.97
--- NOTE | 2024-01-16 10:37 | RAD REPORT ---
EXAM DESCRIPTION: Dennise Saab And Wang (2 Views)01/16/2024 10:25 am CLINICAL HISTORY: Preop for arteriogram COMPARISON: 2022 FINDINGS: The lungs appear clear of acute infiltrate. The heart is mildly to moderately enlarged IMPRESSION: No acute abnormalities displayed
[2024-01-16 10:40] LABS: Anion Gap 7.2 mEq/L (5.0-15.0); Potassium 4.2 mEq/L (3.5-5.1)
--- NOTE | 2024-01-16 12:12 | EKG ---
Test Date: 2024-01-16 Test Time: 10:11:18 [employer] Attorney: FREDDY MEASUREMENT RESULTS: Intervals: Rate: 62 OR: 158 QRSD: 92 QT: 432 QTc: 438 [place]: P: 74 OR: 158 QRS: 58 T: 38 INTERPRETIVE STATEMENTS: Sinus rhythm with marked sinus arrhythmia Nonspecific ST and T wave abnormality Abnormal ECG Compared to ECG 12/10/2022 11:41:17 ST (T wave) deviation now present Fusion complex(es) no longer present Ventricular premature complex(es) no longer present Myocardial infarct finding no longer present Electronically Signed On 01-16-24 12:12:15 CDT by Saeed Plasencia
[~2024-01-17] MED LIST: ATROPINE SULF 1 MG/10 ML SYR IV ONE; FENTANYL CITR 100 MCG/2 ML ONE; FLUMAZENIL 0.1 MG/ML (5 mL VIAL) IV ONE; HEPA 1000U/500MLS 2,000 UNIT/1,000 ML BAG IV ONE; HEPARIN 10,000 UNIT/10 ML VIAL IV ONE; HEPARIN 5000 UNIT/ML 1 ML VIAL ONE; HYDRALAZINE HCL 20 MG/ML VIAL ONE; LIDOCAINE 1% 20 ML MDV ONE; MIDAZOLAM HCL 2 MG/2 ML INJ ONE; NA CHLORIDE 0.9% 500 ML ONE; NALOXONE 0.4 MG/ML VIAL ONE; VERAPAMIL HCL 10 MG/4 ML VIAL IV ONE
[2024-01-17 08:31] VITALS: TEMP 97.8
[2024-01-17 09:40] VITALS: O2SAT 98
[2024-01-17 10:16] VITALS: BP 165/85
--- NOTE | 2024-01-17 22:35 | OP ---
Date of Procedure: 01/17/2024 Surgeon: BARBARA ALTMAN Procedures Performed: Peripheral angiogram with runoff and bilateral selective angiogram of lower ex tremities. Indication: Peripheral vascular disease with claudication. Access: Left common femoral artery, 6-Portuguese, closed with 6-Portuguese Angio-Seal. Complications: None. Bleeding: Less than 50 mL. Total Sedation Time: 50 minutes, used fentanyl and Versed. Description Of Procedure: After risks, benefits, and alternatives were explained, the patient agreed to the procedure and signed informed consent. The patient was brought into cardiac catheterization laboratory, prepped and draped in usual sterile fashion. Then, I accessed left common femoral artery using micropuncture kit, ultrasound guidance, and fluoroscopy and obtained limited angiogram of the groin. Subsequently took an Omni Flush catheter and performed distal aortogram and runoff, and also placed the catheter in the right common femoral artery and performed a detailed angiogram of the righ t lower extremity and also left lower extremity was done. Removed the catheter and the sheath, and 6 -Portuguese Angio-Seal was used for closure of hemostasis. Findings: 1.Distal aorta is widely patent. 2.Right lower extremity: The right common iliac, external iliac, internal iliac, and common femoral as well as profunda widely patent. The right SFA is widely patent. The right popliteal has 40% bernard nosis. Then below the knee, the anterior tibial is proximally occluded 100%. The posterior tibial a lso proximally occluded 100%. The peroneal artery is diffusely diseased about 80% to 90% in multiple places. 3.Left lower extremity: The left common iliac, external iliac, internal iliac, common femoral and p rofunda, and SFA are widely patent. The popliteal is normal. Below the knee arteries, the anterior tibial is 100% occluded proximally. The peroneal has diffuse 80% to 90% stenosis. The posterior tib ial has diffuse 80% stenosis. Conclusion: Severe [id number] diffuse disease. Plan: Needs a stage procedure in both legs below the knee to do at [facility] [place]. She will follow up with me in 1 week, and we will plan to schedule them to be done in the near future. /ALEXX Voice ID: [id number] Report ID: [id number]
== END ==
LOC: CCL 06:30
PROVIDERS: ATTEND Internal Medicine
DX: I70.213 Atherosclerosis of native arteries of extremities with intermittent claudication, bilateral legs (principal); I70.92 Chronic total occlusion of artery of the extremities; E11.9 Type 2 diabetes mellitus without complications; I10 Essential (primary) hypertension; R60.9 Edema, unspecified; E78.5 Hyperlipidemia, unspecified; Z79.84 Long term (current) use of oral hypoglycemic drugs; Z79.899 Other long term (current) drug therapy
CPT/HCPCS: 93005; 85025; 80048; 36415; 85610; 82947; 85730; 71046; 75625; 36247; 75716; 76937; C1893; C1760; G0269; J1644; J0360; J2001; J2250; J3010; J7040; 36200; 75630; 99152; 99153; J0461; J2310